=== PATIENT | female | born 1985 | race Caucasian/White ===

== ENCOUNTER 2019-09-18 06:45 | Inpatient (IN) | payer OTHER ==
[~2019-09-18] VITALS: Ht 162.6 cm; Wt 123.2 kg
[2019-09-18] VITALS (64 sets, daily range): BP systolic 93–1770; BP diastolic 50–105; PULSE 57–114; TEMP 97.6–98.3
--- NOTE | 2019-09-18 06:50 | NUR ---
Pt arrives on unit ambulatory with spouse. States contractions that started at 0100. Denies LOF, vaginal bleeding and reports GFM. Changed into a clean gown. EFM and toco applied. Elevated BP. See VS flowsheet. SVE per this RN 3+/80/-2 with bloody show. Admisison assessment completed. Dr. Wayne notified. See physician notification. Pt updated on POC. Bed locked in low position. Call light within reach. No questions or concerns at this time.
[2019-09-18] MEDS ORDERED: PRENATAL MVI (07:02)
[2019-09-18 07:45] LABS: COLLECTION METHOD CLEAN CATCH
[2019-09-18 07:50] LABS: BASO % 0.3 % (0.0-2.0); EOS # 0.1 (0.0-0.7); EOS % 0.5 % (0-4.0); GRAN # 9.6 (1.4-6.5); GRAN % 72.6 % (42.2-75.2); HEMOGLOBIN 12.2 g/dl (12.5-16.0); LYMPH # 2.7 (1.2-3.4); LYMPH % 20.1 % (20.0-51.0); MEAN CELL VOLUME 92 fl (80.0-100.0); MEAN CORPUSCULAR HEMOGLOBIN 30 pg (27.0-31.0); MEAN CORPUSCULAR HGB CONC 33 g/dl (33.0-37.0); MEAN PLATELET VOLUME 10.5 fl (7.4-10.4); MONO # 0.8 (0.1-0.6); PLATELET COUNT 191 K/mm3 (130-400); RED BLOOD COUNT 4.01 M/mm3 (4.10-5.30); REDCELL DISTRIBUTION WIDTH-CV 13.8 % (11.5-14.5)
[2019-09-18 07:55] LABS: MUCOUS Present /lpf; PH 5 (5-8); SQUAMOUS EPITHELIAL 20-50 /hpf; URINE APPEARANCE Cloudy; URINE BACTERIA Rare /hpf; URINE BILIRUBIN Negative (NEGATIVE); URINE BLOOD 3+ (NEGATIVE); URINE COLOR Amber; URINE GLUCOSE Negative (NEGATIVE); URINE KETONE Negative (NEGATIVE); URINE LEUKOCYTE ESTERASE 3+ (NEGATIVE); URINE NITRATE Negative (NEGATIVE); URINE PROTEIN(semi-quant) 1+ (NEGATIVE); URINE RBC >50 /hpf; URINE UROBILINOGEN Negative (NEGATIVE); URINE WBC >50 /hpf
[2019-09-18 07:55] LABS: HEMATOCRIT 36.7 % (37.0-47.0)
[2019-09-18 08:00] LABS: ALBUMIN 3.2 gm/dL (3.5-5.0); BILIRUBIN,TOTAL 0.5 mg/dL (0.0-1.0); CREATININE, serum 1.07 (0.52-1.25); TOTAL PROTEIN 6.3 gm/dL (6.4-8.2)
--- NOTE | 2019-09-18 10:15 | NUR ---
IV started in LH. Magnesium sulfate bolus infusing per protocol. Pt and room set up for magnesium infusion. Pt updated on POC. Safety reviewed. No questions or concerns at this time.
--- NOTE | 2019-09-18 11:19 | NUR ---
Pt sitting upright for epidural placement. Difficulty tracing FHR due to maternal position. RN at bedside adjusting monitors. FHR audible.
--- NOTE | 2019-09-18 16:25 | NUR ---
Roles on unit at bedside. IUPC placed. SVE per provider 5-/-3. Repeat labs ordered.
[2019-09-18 17:47] LABS: BASO % 0.3 % (0.0-2.0); EOS % 0.1 % (0-4.0); GRAN # 8.5 (1.4-6.5); GRAN % 72.9 % (42.2-75.2); HEMOGLOBIN 12.2 g/dl (12.5-16.0); LYMPH # 2.3 (1.2-3.4); LYMPH % 19.8 % (20.0-51.0); MEAN CELL VOLUME 92 fl (80.0-100.0); MEAN CORPUSCULAR HEMOGLOBIN 31 pg (27.0-31.0); MEAN CORPUSCULAR HGB CONC 34 g/dl (33.0-37.0); MEAN PLATELET VOLUME 10.4 fl (7.4-10.4); MONO # 0.7 (0.1-0.6); MONO % 6.3 % (1.7-9.3); PLATELET COUNT 126 K/mm3 (130-400); RED BLOOD COUNT 3.96 M/mm3 (4.10-5.30); REDCELL DISTRIBUTION WIDTH-CV 14.2 % (11.5-14.5)
[2019-09-18 17:50] LABS: HEMATOCRIT 36.3 % (37.0-47.0)
[2019-09-18 17:55] LABS: ALBUMIN 3.3 gm/dL (3.5-5.0); BILIRUBIN,TOTAL 0.9 mg/dL (0.0-1.0); CALCIUM 8.7 mg/dL (8.4-10.2); CREATININE, serum 1.26 (0.52-1.25); POTASSIUM 4.8 mmol/L (3.4-5.0); TOTAL PROTEIN 6.6 gm/dL (6.4-8.2)
--- NOTE | 2019-09-18 18:55 | NUR ---
Pt called out wanting to be repositioned. Upon arrival to room, IUPC appears to be coming out. This RN attempted to advance IUPC farther for accurate reading. 192 - IUPC still not reading accurately. Full SVE complete and IUPC found to be coiled in vagina, not in cervix/uterus. SVE , much bloody show noted. 1929 - Roles updated, see physician notification. IUPC out and external toco monitor placed.
--- NOTE | 2019-09-18 21:30 | NUR ---
2130 - SVE complete and plus 1 station. Pt educated on pushing techniques, verbalized understanding. Pt positioned into footplates. Initial push at this time. 2200 - Pt pushing well with contractions. RN remains at bedside, handholding EFM in between pushes. Mag assessment complete. 2220 - Pt continues to push well with contractions. Mancini catheter removed. 50 mL, mitchell colored urine out. 2230 - Pt continues to push well with contractions. Roles at bedside for assessment. 2300 - Pt continues to push well with contractions. RN remaining at bedside. Mag assessment complete.
--- NOTE | 2019-09-18 23:50 | NUR ---
2330 - Pt continues to push well with contractions. Dr. Barton gowned and gloved at perineum. Nursery, RN Siomara Gomez called for delivery. 2350 - Spontaneous delivery of viable boy. Cord clamped x 2 and cut by family member. Pitocin off. Care of infant assumed to LUZMA Morataya. 0000 - Dr. Barton continues to work on delivery of placenta. 0014 - Spontaneous delivery of intact placenta. Fundal massage started by Dr. Barton. Verbal orders to give 800 mcg of cytotec rectally, see SEP. Pitocin restarted at 333 mL/hr per protocol. Second degree laceration repaired by Dr. Barton. Straight cath by Dr. Barton, 100 mL mitchell colored urine out. 0030 - Verbal orders that patient will stay on magnesium and will need Mancini catheter. Mancini placed by Dr. Barton. Pericare provided. New chux beneath patient. Ice pack to perineum. Pt repositioned in bed for comfort. Reviewed plan of care with patient. recovery started.
[2019-09-19] VITALS (26 sets, daily range): BP systolic 87–132; BP diastolic 44–78; PULSE 54–81; TEMP 97.3–98.2
[2019-09-19 07:08] LABS: BASO # 0.1 (0.0-0.2); BASO % 0.2 % (0.0-2.0); GRAN # 17.1 (1.4-6.5); GRAN % 81.8 % (42.2-75.2); LYMPH # 2.7 (1.2-3.4); MEAN CELL VOLUME 92 fl (80.0-100.0); MEAN CORPUSCULAR HGB CONC 34 g/dl (33.0-37.0); MEAN PLATELET VOLUME 10.4 fl (7.4-10.4); MONO # 0.9 (0.1-0.6); MONO % 4.5 % (1.7-9.3); PLATELET COUNT 123 K/mm3 (130-400); RED BLOOD COUNT 3.01 M/mm3 (4.10-5.30); REDCELL DISTRIBUTION WIDTH-CV 14.4 % (11.5-14.5)
[2019-09-19 07:19] LABS: HEMATOCRIT 27.8 % (37.0-47.0); HEMOGLOBIN 9.4 g/dl (12.5-16.0); MEAN CORPUSCULAR HEMOGLOBIN 31 pg (27.0-31.0)
[2019-09-19 07:37] LABS: ALBUMIN 2.6 gm/dL (3.5-5.0); BILIRUBIN,TOTAL 0.4 mg/dL (0.0-1.0); CALCIUM 7.4 mg/dL (8.4-10.2); CREATININE, serum 1.41 (0.52-1.25); POTASSIUM 4.5 mmol/L (3.4-5.0); TOTAL PROTEIN 5.3 gm/dL (6.4-8.2)
[2019-09-19 07:46] LABS: MAGNESIUM 9.2 mg/dL (1.6-2.3)
--- NOTE | 2019-09-19 07:50 | NUR ---
Mag and LR off. IV to INT
--- NOTE | 2019-09-19 07:50 | NUR ---
Dr. Wayne at nurses station and labs, Vital signs reviewed. In patient room. Verbal order to stop pitocin and LR. Patient may eat regular diet. May take out de catheter. Patient sitting up in bed eating breakfast.
[2019-09-20] VITALS (7 sets, daily range): BP systolic 100–129; BP diastolic 48–72; PULSE 70–88; TEMP 97.2–98.5
[2019-09-20 07:49] LABS: MEAN CELL VOLUME 94 fl (80.0-100.0); MEAN CORPUSCULAR HGB CONC 33 g/dl (33.0-37.0); MEAN PLATELET VOLUME 10.7 fl (7.4-10.4); PLATELET COUNT 135 K/mm3 (130-400); RED BLOOD COUNT 2.55 M/mm3 (4.10-5.30); REDCELL DISTRIBUTION WIDTH-CV 14.5 % (11.5-14.5)
[2019-09-20 07:51] LABS: HEMOGLOBIN 7.8 g/dl (12.5-16.0); MEAN CORPUSCULAR HEMOGLOBIN 31 pg (27.0-31.0)
[2019-09-20 08:02] LABS: ALANINE AMINOTRANSFERASE 76 U/L (9-52); ALBUMIN 2.3 gm/dL (3.5-5.0); ALKALINE PHOSPHATASE 93 U/L (50-136); ANION GAP 5 mmol/L (7-16); AST,SGOT 58 U/L (15-37); BILIRUBIN,TOTAL < 0.1 mg/dL (0.0-1.0); BLOOD UREA NITROGEN 23 mg/dL (7-17); CALCIUM 7.9 mg/dL (8.4-10.2); CARBON DIOXIDE 23 mmol/L (22-30); CHLORIDE 108 mmol/L (98-107); CREATININE, serum 1.22 (0.52-1.25); GLUCOSE 105 mg/dL (74-106); POTASSIUM 4.2 mmol/L (3.4-5.0); SODIUM 136 mmol/L (137-145)
--- NOTE | 2019-09-20 11:52 | NUR ---
PATIENT TO SHOWER TOLERATES WELL.
[2019-09-21 05:15] VITALS: BP 140/69; PULSE 72; TEMP 98.4
--- NOTE | 2019-09-21 06:15 | NUR ---
Rests in bed, alert. Denies any needs at this time.
[2019-09-21 06:59] LABS: MEAN CELL VOLUME 96 fl (80.0-100.0); MEAN CORPUSCULAR HGB CONC 32 g/dl (33.0-37.0); MEAN PLATELET VOLUME 10.6 fl (7.4-10.4); PLATELET COUNT 180 K/mm3 (130-400); RED BLOOD COUNT 2.45 M/mm3 (4.10-5.30); REDCELL DISTRIBUTION WIDTH-CV 14.6 % (11.5-14.5)
[2019-09-21 07:17] LABS: HEMATOCRIT 23.6 % (37.0-47.0); HEMOGLOBIN 7.6 g/dl (12.5-16.0); MEAN CORPUSCULAR HEMOGLOBIN 31 pg (27.0-31.0)
[2019-09-21 07:19] LABS: ALBUMIN 2.5 gm/dL (3.5-5.0); BILIRUBIN,TOTAL 0.2 mg/dL (0.0-1.0); CREATININE, serum 1.07 (0.52-1.25); POTASSIUM 4.4 mmol/L (3.4-5.0); TOTAL PROTEIN 5.2 gm/dL (6.4-8.2)
[2019-09-21 08:08] LABS: ANISOCYTOSIS 1+; BAND 1 % (0-10); EOSINOPHIL 2 % (0-4); LYMPHOCYTE 27 % (20.0-51.0); NEUTROPHILS 68 % (42.0-75.2); NUCLEATED RED BLOOD CELL 1 (0-6)
[2019-09-21 08:09] LABS: PLATELET ESTIMATE NORMAL (NORMAL)
[2019-09-21] MEDS ORDERED: IBU600 MG PO (08:24)
[2019-09-21 09:15] VITALS: BP 121/61; PULSE 86; TEMP 98.3
--- NOTE | 2019-09-21 09:24 | NUR ---
Initial visit; Parents thanked [employer] for offering congratulations and God's blessings for the of their son. [employer] thanked family for choosing [facility].
[2019-09-21] MEDS ORDERED: PERCOCET 325 MG1 TA2 PO (09:59)
--- NOTE | 2019-09-21 14:17 | NUR ---
1315 DISCHARGE INSTRUCTIONS REVIEWED WITH PATIENT. PATIENT VERBALIZED UNDERSTANDING. 1330 PATIENT LEFT AMBULATORY IN NO APPARENT DISTRESS AND ACCOMPANIED BY SPOUSE AND THIS RN. ALL PERSONAL BELONGINGS GATHERED FROM PATIENT ROOM.
== END 2019-09-21 13:30 | disposition home or self-care (01) | DRG 807 ==
LOC: LDRO 06:45 → LDR 06:50 → OB 09-19 10:15
PROVIDERS: Obstetrics & Gynecology; ADMIT Obstetrics & Gynecology
PROC: 10E0XZZ Delivery of Products of Conception, External Approach (ICD-10-PCS; principal; 2019-09-18)
PROC: 0KQM0ZZ Repair Perineum Muscle, Open Approach (ICD-10-PCS; 2019-09-18)
PROC: 10907ZC Drainage of Amniotic Fluid, Therapeutic from Products of Conception, Via Natural or Artificial Opening (ICD-10-PCS; 2019-09-18)
PROC: 3E033VJ Introduction of Other Hormone into Peripheral Vein, Percutaneous Approach (ICD-10-PCS; 2019-09-18)
DX: O14.14 Severe pre-eclampsia complicating childbirth (principal); Z37.0 Single live birth; O70.1 Second degree perineal laceration during delivery; O99.02 Anemia complicating childbirth; D64.9 Anemia, unspecified; O99.214 Obesity complicating childbirth; E66.9 Obesity, unspecified; Z3A.39 39 weeks gestation of pregnancy
CPT/HCPCS: J0690; J1885; J2270; J2370; J2400; J2405; J2540; J2590; J2795; J3475; J7120